=== PATIENT | male | born 1965 | race Caucasian/White ===

== ENCOUNTER → 2017-07-08 | Outpatient (CLI) | payer OTHER ==
[~2017-07-08] MED LIST: ACIPHEX 20 MG T20 MG PO; ADULT LOW DOSE81 MG PO; ALBUTEROL INHAL17 GM IH; AMLODIPINE; AMLODIPINE BESY10 MG PO; ASPIRIN EC325 M1; BACTRIM DS TAB1 EACH PO; CARAFATE 1 GM TA1 G1 PO; CELEBREX 200 M200 M1 PO; CELEXA; CIPROFLOXACIN500 M1 PO; FENTANYL 1100 MCG/HR TRANSDERM; FLAGYL500 MG PO; FLONASE 0.05%50 MCG NS; HYDROCODONE-AP1 EA12 PO; KEFLEX500 MG PO; LISINOPRIL5 MG; LORATIDINE 10 M10 M1 PO; LYRICA150 MG PO; METOPROLOL 50 M50 M1 PO; MOBIC15 MG PO; MS CONTIN15 MG PO; NEURONTIN250 MG/5 M PER TUBE; NEURONTIN250 MG/5 M PO; NEXIUM40 MG PO; NORCO 5-325 TA1 EACH PO; NORVASC 5 MG TAB5 MG PO; NORVASC5 MG PO; NUCYNTA50 MG PO; OMEPRAZOLE40 MG PO; OXYCONTIN20 M1 PO; PENICILLIN V P500 MG PO; PERCOCET 10-321 EACH PO; PERCOCET 5-3251 EACH PO; PERCOCET 7.5-31 EACH PO; TAMSULOSIN HCL0.4 MG PO; TESSALON200 MG PO; TOPROL XL25 MG; TORADOL 10 MG T10 MG PO; VALIUM5 MG PO; ZOFRAN ODT4 MG DISSOLVE; ZOFRAN ODT4 MG PO; ZPAK PO
--- NOTE | 2017-07-08 10:24 | 2DMMODE ---
[place] [address] 2 D/M-MODE ECHOCARDIOGRAM Name: DAWN SHUKLA Room: [facility]#: [id number] Admission: 07/08/17 Attend Phys: Verenice Steel Discharge: Date of : 65 Date of Service: 07/08/17 1023 Report #: [id number] THIS REPORT FOR: //name// APPROVED REPORT Study performed: 07/08/2017 09:06:56 EXAM: Comprehensive 2D, Doppler, and color-flow Echocardiogram Patient Location: Out-Patient Status: routine BSA: 2.15 HR: 66 bpm BP: 160/92 mmHg Other Information Study Quality: Good Indications Murmur 2D Dimensions LVEF(%): 79.69 (>50%) IVSd: 14.06 (7-11mm) LVOT Diam: 21.14 (18-24mm) LVDd: 53.64 mm PWd: 12.82 (7-11mm) Ascending Ao: 42.09 (22-36mm) LVDs: 27.50 (25-40mm) Aortic Root: 38.14 mm Dominguez's LVEF: 79.69 % Volumes Left Atrial Volume (Systole) LA ESV Index: 27.70 mL/m2 Aortic Valve AoV Peak Nate.: 2.96 m/s AO Peak Gr.: 35.14 mmHg LVOT Max P.07 mmHg AO Mean Gr.: 20.82 mmHg LVOT Mean P.16 mmHg LVOT Max V: 0.72 m/s AO V2 VTI: 73.19 cm LVOT Mean V: 0.51 m/s ALL (VTI): 1.24 cm2 LVOT V1 VTI: 25.86 cm AI Placer: 1.84 m/s2 AI PHT: 540.14 [place] [address] 2 D/M-MODE ECHOCARDIOGRAM Name: DAWN SHUKLA Room: [facility]#: [id number] Admission: 07/08/17 Attend Phys: Verenice Steel Discharge: Date of : 65 Date of Service: 07/08/17 1023 Report #: [id number] E/A Ratio: 1.34 MV Decel. Time: 219.63 ms MV E Max Nate.: 0.70 m/s MV PHT: 63.69 ms MVA (PHT): 3.45 cm2 TDI E/Lateral E': 5.00 E/Medial E': 6.36 Medial E' Nate.: 0.11 m/s Lateral E' Nate.: 0.14 m/s Pulmonary Valve PV Peak Nate.: 0.79 m/s PV Peak Gr.: 2.51 mmHg Left Ventricle The left ventricle is normal size. There is normal LV segmental wall motion. Mild concentric left ventricular hypertrophy. Left ventricular systolic function is normal. LVEF is 60-65%. The left ventricular diastolic function is normal. Right Ventricle The right ventricle is normal size. The right ventricular systolic function is normal. Atria The left atrium size is normal. The right atrium size is normal. Aortic Valve Aortic valve is calcified. Aortic valve is bicuspid. Mild aortic regurgitation. Moderate to severe aortic stenosis. Mitral Valve The mitral valve is normal in structure. There is no mitral valve regurgitation noted. No evidence of mitral valve stenosis. Tricuspid Valve The tricuspid valve is normal in structure. There is no tricuspid valve regurgitation noted. Pulmonic Valve The pulmonary valve is normal in structure. There is no pulmonic valvular regurgitation. Great Vessels Aortic root is moderately dilated. (4.21 cm) [place] [address] 2 D/M-MODE ECHOCARDIOGRAM Name: SHUKLADAWN Room: [facility]#: [id number] Admission: 07/08/17 Attend Phys: Verenice Steel Discharge: Date of : 65 Date of Service: 07/08/17 1023 Report #: [id number] and collapses with >50% inspiration Pericardium There is no pericardial effusion. <Conclusion> The left ventricle is normal size. Mild concentric left ventricular hypertrophy. Left ventricular systolic function is normal. LVEF is 60-65%. The left ventricular diastolic function is normal. Aortic valve is calcified. Aortic valve is bicuspid. Mild aortic regurgitation. Moderate to severe aortic stenosis. Aortic root is moderately dilated. (4.21 cm) <ELECTRONICALLY SIGNED> By: Fito Beach MD, FACC 07/08/17 1023 1023 1023 Fito Beach MD, FACC /INF
== END ==
LOC: M.CRD 08:18
DX: I35.1 Nonrheumatic aortic (valve) insufficiency (principal); I35.0 Nonrheumatic aortic (valve) stenosis; I70.0 Atherosclerosis of aorta; I51.7 Cardiomegaly

== ENCOUNTER 2017-07-09 12:18 | Emergency (ER) | payer OTHER ==
[~2017-07-09] VITALS: Ht 185.4 cm; Wt 90.7 kg
[~2017-07-09 12:18] MED LIST changes: -ADULT LOW DOSE81 MG PO
[2017-07-09 12:51] LABS: ABSOLUTE BASOPHILS 0.1 thou/uL (0.0-0.2); ABSOLUTE EOSINOPHILS 0.1 thou/uL (0.0-0.7); ABSOLUTE LYMPHOCYTES 1.8 thou/uL (0.8-5.3); ABSOLUTE MONOCYTES 0.8 thou/uL (0.0-1.2); ABSOLUTE NEUTROPHILS 7.2 thou/uL (1.6-8.1); BASOPHILS 1.3 %; EOSINOPHILS 1.2 %; HEMATOCRIT 46.2 % (42.0-52.0); HEMOGLOBIN 15.3 gm/dL (14.0-18.0); LYMPHOCYTES 18.3 %; MCHC 33.2 g/dL (28.0-37.0); MCV 84.6 fL (80.0-100.0); MONOCYTES 8.1 %; MPV 7.5 fl. (7.2-11.1); NUCLEATED RBCS 0 /100WBC; PLATELET COUNT* 241 thou/uL (150-400); POLYS 71.1 %; RBC 5.47 mil/uL (4.50-6.00); RDW-CV 14.6 % (10.5-14.5); WBC 10.1 thou/uL (4.0-11.0)
[2017-07-09 12:56] LABS: ANION GAP 9 mmol/L (7-16); BUN 15 mg/dL (7-18); CALCIUM 9.1 mg/dL (8.5-10.1); CHLORIDE 102 mmol/L (98-107); CO2 28 mmol/L (21-32); CREATININE 1.1 mg/dL (0.6-1.3); GLUCOSE 132 mg/dL (70-99); POTASSIUM 3.9 mmol/L (3.5-5.1); SODIUM 139 mmol/L (136-145)
[2017-07-09 13:07] LABS: ALBUMIN 3.7 g/dL (3.4-5.0); ALKALINE PHOSPHATASE 92 U/L (46-116); LIPASE 168 U/L (73-393); NT-PRO BRAIN NAT PEPTIDE 164 pg/mL (<300); SGOT 32 U/L (15-37); SGPT 46 U/L (30-65); TOTAL BILIRUBIN 0.5 mg/dL (<0.1-1.0); TOTAL PROTEIN 7.5 g/dL (6.4-8.2); TROPONIN-I LEVEL <0.06 ng/mL (<0.06)
[2017-07-09] MEDS ORDERED: ADULT LOW DOSE81 MG PO (17:21)
[2017-07-09 17:26] VITALS: BP 137/78
--- NOTE | 2017-07-10 11:00 | EKG ---
[place] [address] ELECTROCARDIOGRAM REPORT Name: DAWN SHUKLA Room: [facility]#: [id number] Admission: 07/09/17 Attend Phys: Discharge: 07/09/17 Date of : 65 Report #: [id number] THIS REPORT FOR: //name// [facility] ED Test Date: 2017-07-09 Test Time: 12:23:03 Pat Name: DAWN SHUKLA Department: Room: Gender: M [employer] Inspector: Oren HUIZAR : 1965 Requested By: Dawn Tirado Order Number: [id number] MD: Rustam Tello Measurements Intervals [place] Rate: 69 P: 5 SD: 156 QRS: 13 QRSD: 94 T: 35 QT: 404 QTc: 433 Interpretive Statements Sinus rhythm Anteroseptal infarct, old Baseline wander in lead(s) III Compared to ECG 04/23/2015 19:49:34 No significant changes Electronically Signed On 07-10-2017 11:00:09 CDT by Rustam Tello [email or web address] <ELECTRONICALLY SIGNED> By: Rustam Tello MD, [facility] 07/10/17 1100 1223 1223 Rustam Tello MD, [facility] /EPI
== END 2017-07-09 17:26 | disposition home or self-care (01) ==
LOC: M.ERS 12:18
PROVIDERS: Emergency Medicine
DX: R20.0 Anesthesia of skin (principal); R20.2 Paresthesia of skin; R07.9 Chest pain, unspecified; F17.200 Nicotine dependence, unspecified, uncomplicated; Z96.652 Presence of left artificial knee joint

== ENCOUNTER → 2017-07-21 | Outpatient (CLI) | payer OTHER ==
[~2017-07-21] MED LIST changes: +ADULT LOW DOSE81 MG PO
== END ==
LOC: M.CT 07:04
DX: N20.1 Calculus of ureter (principal); M43.26 Fusion of spine, lumbar region; K43.2 Incisional hernia without obstruction or gangrene; K76.0 Fatty (change of) liver, not elsewhere classified

== ENCOUNTER 2017-09-22 18:25 | Emergency (ER) | payer OTHER ==
[~2017-09-22] VITALS: Ht 185.4 cm; Wt 81.7 kg
[2017-09-22 19:22] VITALS: BP 154/88
== END 2017-09-22 19:24 | disposition home or self-care (01) ==
LOC: M.ERS 18:25
DX: S61.012A Laceration without foreign body of left thumb without damage to nail, initial encounter (principal); F17.210 Nicotine dependence, cigarettes, uncomplicated; W26.0XXA Contact with knife, initial encounter; Y93.89 Activity, other specified; Y92.89 Other specified places as the place of occurrence of the external cause; Y99.8 Other external cause status

== ENCOUNTER → 2018-05-25 | Outpatient (CLI) | payer OTHER | LOC: M.MRI 10:54 | DX: I63.9 Cerebral infarction, unspecified (principal) ==

== ENCOUNTER → 2019-04-09 | Outpatient (CLI) | payer OTHER | LOC: M.ULTRA 09:37 | DX: K76.0 Fatty (change of) liver, not elsewhere classified (principal); Q63.2 Ectopic kidney ==